=== PATIENT | female | born 1930 | race Caucasian/White ===

== ENCOUNTER 2017-05-18 17:26 | Inpatient (IN) | payer MEDICARE ==
[~2017-05-18 17:26] MED LIST: FLORANEX / LACT1 TAB PO
--- NOTE | 2017-05-18 19:50 | NUR ---
PATIENT ADMITTED FOR[facility] TO ROOM 1128 VIA WHEELCHAIR IN A VAN. SHE IS DELUSIONAL, YELLING OUT TO HER MOM AND THREATENING TO THROW HER SELF IN THE FLOOR. HX: CVA February,, HTN, AND HYPER LIPIDEMIA. FALL PRECAUTIONS INITIATED. CONTINUE PLAN OF CARE.
[2017-05-18] MEDS ORDERED: NORVASC10 MG PO (21:32)
[2017-05-18] MEDS ORDERED: ASPERCREME 5 OZ5 OZ TOPICAL (21:33)
[2017-05-18] MEDS ORDERED: BAYER CHEWABLE81 MG PO (21:34)
[2017-05-18] MEDS ORDERED: PLAVIX75 MG PO (21:35)
[2017-05-18] MEDS ORDERED: LIPITOR20 MG PO (21:35)
[2017-05-18] MEDS ORDERED: COLACE100 MG PO (21:36)
[2017-05-18] MEDS ORDERED: FERROUS SULFAT325 MG PO (21:37)
[2017-05-18] MEDS ORDERED: NEURONTIN 300300 MG PO (21:40)
[2017-05-18] MEDS ORDERED: HYDRALAZINE HCL25 MG PO (21:41)
[2017-05-18] MEDS ORDERED: LINZESS145 MCG PO (21:42)
[2017-05-18] MEDS ORDERED: LISINOPRIL5 MG PO (21:42)
[2017-05-18] MEDS ORDERED: ATIVAN0.5 MG PO ×2 (21:43→21:52)
[2017-05-18] MEDS ORDERED: MIRALAX17 GM PO (21:44)
[2017-05-18] MEDS ORDERED: NYSTATIN ORAL SU5 ML PO (21:45)
[2017-05-18] MEDS ORDERED: OMEPRAZOLE20 M1 PO (21:46)
[2017-05-18] MEDS ORDERED: TRAZODONE HCL50 MG PO (21:47)
[2017-05-18] MEDS ORDERED: ACETAMINOPHEN325 MG PO (21:48)
[2017-05-18] MEDS ORDERED: BISACODYL5 MG PO (21:51)
[2017-05-18] MEDS ORDERED: MYLANTA II SUSP30 ML PO (21:53)
[2017-05-18] MEDS ORDERED: NAPROSYN500 MG PO (21:54)
[2017-05-18] MEDS ORDERED: ULTRAM50 MG PO (21:55)
[2017-05-18] MEDS ORDERED: ZOFRAN4 MG PO (21:58)
[2017-05-18] MEDS ORDERED: ARNICA (22:00)
--- NOTE | 2017-05-18 23:29 | NUR ---
RECEIVED IN DAYROOM. SITTING IN ROLLING RECLINER WITH EYES CLOSED. RESPONDS TO VOICE. CALM AND COOPERATIVE [facility] AND ASSESSMENTS. NO DELUSIONAL STATEMENTS MADE OF THIS TIME. ASSISTED TRANSFER TO BED. TOTAL LIFT. REDIRECT AND REORIENT NEEDED. RESTING IN BED WITH EYES CLOSED AT THIS TIME. AUTOMATED MANUFACTURING INSTRUCTOR PULLED PM ONE TIME ORDER MEDICATIONS TO BE GIVEN AT THIS TIME. CONTINUE PLAN OF CARE.
[2017-05-19 04:48] VITALS: BP 92/41; BMI 19.6
[2017-05-19 07:44] LABS: BASOPHILS 0.3 % (0-2); EOSINOPHILS 1.9 % (0-7); HEMATOCRIT 33.1 % (36.0-48.0); HEMOGLOBIN 10.9 g/dL (12-16); IMMATURE GRANULOCYTES 0.1 % (0-5); LYMPHOCYTES 22.2 % (15-50); MCH 29.3 pg (26.0-34.0); MCHC 32.9 g/dL (31.0-37.0); MEAN PLATELET VOLUME 10.4 fL (7.4-10.4); MONOCYTES 7.4 % (2-11); NEUTROPHILS 68.1 % (40-80); PLATELET COUNT 412 10x3/uL (130-400); RBC 3.72 10x6/uL (4.00-5.40); RDW 13.4 % (11.5-14.5)
[2017-05-19 07:48] LABS: HEMOGLOBIN A1C 5.7 % (4.8-6.0)
[2017-05-19 08:26] LABS: ALBUMIN 3.4 g/dL (3.4-5.0); ANION GAP 18.9 mmol/L (8-16); BILIRUBIN - TOTAL 0.41 mg/dL (0.2-1.3); CALCIUM 9.9 mg/dL (8.5-10.1); CARBON DIOXIDE 22.2 mmol/L (21.0-32.0); CHOL - HDL RATIO 3.4 ratio (2.3-4.1); CREATININE - SERUM 1.7 mg/dL (0.6-1.3); LDL-HDL RATIO 1.6 ratio (1.5-3.5); POTASSIUM - SERUM 4.1 mmol/L (3.5-5.1); THYROID STIMULATING HORMONE 1.23 uIU/mL (0.36-3.74)
[2017-05-19 09:21] VITALS: BP 161/66
[2017-05-19 10:25] VITALS: BMI 19.4
--- NOTE | 2017-05-19 11:47 | NUR ---
pt continues to be restless and yelling out. pt yelling out for mama and making baby like sounds. pt yelling for water and when staff gives it to her she pours it onto the floor. redirected pt to appropriate behavior. no medications at this time. dr. aguilar notified. no aggression noted. pt is a total lift and 3 staff members required to lift pt from bed to her rolling chair. fall precautions maintained. pt is 1:1 for safety. will continue to monitor and continue with plan of care.
[2017-05-19 20:00] VITALS: BP 154/89
--- NOTE | 2017-05-19 20:51 | NUR ---
RECEIVED IN DAYROOM SITTING IN RECLINING CHAIR WITH PEERS BY HER SIDE. CONFUSED. CALM AND COOPERATIVE WITH CARE AND ASSESSMENTS. REDIRECT AND REORIENT NEEDED. IN BED YELLING OUT MOMMA AT THIS TIME. CONTINUE PLAN OF CARE
[2017-05-20 08:19] LABS: RAPID PLASMA REAGIN Non Reactive (Non Reactive)
[2017-05-20 09:16] LABS: FOLATE (FOLIC ACID) - SERUM 17.1 ng/mL (>3.0); VITAMIN D 25 HYDROXY 28.6 ng/mL (30.0-100.0)
--- NOTE | 2017-05-20 14:46 | NUR ---
PT CONTINUES TO BE RESTLESS WHEN AWAKE. PT DID NOT SLEEP WELL ON PREVIOUS NIGHT, SO SHE HAS NAPPED ON AND OFF ALL DAY. PT CONTINUES TO YELL OUT FOR "MAMA". PT DID COOPERATE WITH ASSESSMENT. MEDICATIONS GIVEN ORDERED. FALL PRECAUTIONS MAINTAINED. WILL CONTINUE TO MONITOR AND CONTINUE WITH PLAN OF CARE.
[2017-05-20 20:00] VITALS: BP 146/58
--- NOTE | 2017-05-21 02:39 | NUR ---
B) Patient alert and oriented to self, very confused and wanting to get out of her chair, I) Administered scheduled medications, monitored for falls and safety, redirected that she had recently fallen and was unsteady when out of her chair, R) Medication compliant, difficult to redirect. P) Continue plan of care.
--- NOTE | 2017-05-21 07:20 | NUR ---
OBTAINED STOOL SAMPLE FOR CDT, PATIENT IS HAVING MULTIPLE BM'S PER DAY EVERY DAY. ATTEMPTED TO OBTAIN AN IN AND OUT CATH FOR A URINE SAMPLE, BUT PATIENT HAD NO URINE AT THIS TIME. WILL TRY AGAIN LATER.
--- NOTE | 2017-05-21 07:29 | NUR ---
B) PATIENT IS MORE LUCID THIS AM, SHE IS TALKING ABOUT HOW SHE HAS HAD TWO STROKES AND SINCE SHE HAS HAD THEM IT HAS MADE IT HARD FOR HER TO MOVE. SHE ALLOWS STAFF TO CLEAN HER UP AND ASSIST HER, SHE HAS NOT YELLED OUT THIS AM, COLOR CORRECTOR REPORTS SHE DID NOT SLEEP AT ALL LAST NIGHT AND HAD MULTIPLE BM'S. NO DELUSIONS SEEN THIS AM, WILL MONITOR. I) PROVIDE PRESCRIBED MEDS. R) PATIENT IS COMPLIANT WITH MEDS. P) CONTINUE POC.
--- NOTE | 2017-05-21 10:23 | NUR ---
ORIENTED TO PERSON ONLY. PT DID NOT SLEEP ON PREVIOUS SHIFT AND IS VERY TIRED TODAY. PT HAS HAD MULTIPLE EPISODES OF DIARRHEA AND SAMPLE SENT OFF FOR TESTING OF CDIFF. AWAITING RESULTS. NO AGGRESSION NOTED. MEDICATIONS GIVEN ORDERED. PT IS NOT EATING WELL BUT SWALLOW STUDY SHOWED NO ISSUES. DOCTOR NOTIFIED OF RESULTS AND OF DIARRHEA EPISODES. FALL PRECAUTIONS MAINTAINED. WILL CONTINUE TO MONITOR AND CONTINUE WITH PLAN OF CARE.
[2017-05-21 10:41] VITALS: BP 126/66
--- NOTE | 2017-05-21 13:54 | NUR ---
RD follow up Chart reviewed, poor intake. meds reviewed. continue diet and encourage intake, and supplement
[2017-05-21 20:02] VITALS: BP 108/49
--- NOTE | 2017-05-22 03:43 | NUR ---
B) Patient is alert and oriented to self, very confused, calm and cooperative with care and assessment, I) Administered scheduled medications, monitored for safety, R) Medication compliant, early moring calling out in a childlike voice P) Continue plan of care.
--- NOTE | 2017-05-22 07:49 | NUR ---
OBTAINED URINE BY IN AND OUT CATH, WILL TAKE TO LAB.
[2017-05-22 08:31] VITALS: BP 132/57
[2017-05-22 08:37] LABS: APPEARANCE HAZY (CLEAR); BILIRUBIN NEGATIVE (NEGATIVE); COLOR YELLOW (YELLOW); GLUCOSE NEGATIVE (NEGATIVE); KETONE NEGATIVE (NEGATIVE); NITRITE NEGATIVE (NEGATIVE); PROTEIN NEGATIVE (NEGATIVE); UROBILINOGEN NORMAL (NORMAL)
--- NOTE | 2017-05-22 10:15 | NUR ---
B) PATIENT SAYS "I WANT TO GO TO BED" HE HAS BEEN SAYING THIS SINCE HE GOT OUT OF THE BED. PATIENT CAN STAND WITH STAFF ASSIST. HE IS ORIENTED TO SELF, HE DOES NOT KNOW PLACE, TIME, OR SITUATION. I) PROVIDE PRESCRIBED MEDS. R) PATIENT IS COMPLIANT WITH MEDS. P) CONTINUE POC.
--- NOTE | 2017-05-22 13:54 | NUR ---
PT IS VERY LETHARGIC TODAY. SHE DOES AWAKEN WITH STIMULI BUT HAS MINIMAL COMMUNICATION WITH STAFF. PT C\O TIREDNESS. STAFF HAVE MADE SEVERAL ATTEMPTS TO GET PT TO EAT WITH NO SUCCESS. MEGACE ORDERED PER DR. FERRER. NO AGGRESSION NOTED. FALL PRECAUTIONS MAINTAINED. WILL CONTINUE TO MONITOR AND CONTINUE WITH PLAN OF CARE.
--- NOTE | 2017-05-22 17:44 | NUR ---
PATIENTS NEPHEW CALLED TO CHECK ON HER AND HE DID SAY SHE IS ECCENTRIC. HE DOES KNOW HER WELL, HE HAS BEEN HER CAREGIVER. HE IS USE TO SEEING HER EVERY DAY. HE SAYS SHE WILL SAY SHE IS SICK ALL THE TIME TO GET OUT OF DOING THINGS AND SHE LOVES TO SLEEP.
[2017-05-22 18:55] LABS: BASOPHILS 0.3 % (0-2); EOSINOPHILS 0.5 % (0-7); HEMATOCRIT 35.1 % (36.0-48.0); HEMOGLOBIN 11.9 g/dL (12-16); IMMATURE GRANULOCYTES 0.2 % (0-5); LYMPHOCYTES 21.7 % (15-50); MCH 29.4 pg (26.0-34.0); MCHC 33.9 g/dL (31.0-37.0); MCV 86.7 fL (80.0-100.0); MEAN PLATELET VOLUME 10.5 fL (7.4-10.4); MONOCYTES 6.5 % (2-11); NEUTROPHILS 70.8 % (40-80); PLATELET COUNT 409 10x3/uL (130-400); RBC 4.05 10x6/uL (4.00-5.40); RDW 13.3 % (11.5-14.5)
[2017-05-22 19:05] LABS: ANION GAP 16.4 mmol/L (8-16); CALCIUM 9.9 mg/dL (8.5-10.1); CARBON DIOXIDE 23.1 mmol/L (21.0-32.0); POTASSIUM - SERUM 3.5 mmol/L (3.5-5.1)
[2017-05-22 19:30] VITALS: BP 118/62
--- NOTE | 2017-05-23 04:16 | NUR ---
B) Patient is alert and oriented to self, naps most of the time, arrouses to name, I) Administered scheduled medications, monitored for safety, R) Medications compliant, P) Continue plan of care.
[2017-05-23 08:00] VITALS: BP 114/57
--- NOTE | 2017-05-23 18:42 | NUR ---
ORIENTED TO SELF ONLY.MEDS TAKEN CRUSHED AND PUT IN CHOCOLATE PUDDING.NO YELLING OUT OBSERVED.REQUIRES ASSIST WITH ALL ADL.LEFT ARM CONTRACTED.WILL CONTINUE WITH PLAN OF CARE,MONITOR FOR CHANGES AND SAFETY.
[2017-05-23 19:30] VITALS: BP 148/52
--- NOTE | 2017-05-24 02:33 | NUR ---
B) Patient is alert and oriented to self, yelling out at times, very confused, total assist I) Administered scheduled medications, monitored for safety and falls, redirected as needed. R) Medications compliant, restless sleep P) Continue plan of care.
[2017-05-24 07:47] VITALS: BP 127/62
[2017-05-24 13:23] VITALS: BMI 19.3
--- NOTE | 2017-05-24 13:26 | NUR ---
PT CONTINUES TO REFUSE TO EAT EVEN WITH STAFF ATTEMPTING MULTIPLE TIMES TO EDUCATE ON IMPORTANCE OF EATING. STAFF HAS ALSO ATTEMPTING TO FEED THE PT. SWALLOW STUDY SHOWED NO ISSUES. MEDICATIONS GIVEN IN ICE CREAM BECAUSE IT IS EASIER FOR THE PT TO TAKE THEM. PT WILL YELL OUT "MAMA" WHEN SHE WANTS ATTENTION FROM STAFF. NO AGGRESSION NOTED. FALL PRECUATION MAINTAINED. WILL CONTINUE TO MONITOR AND CONTINUE WITH PLAN OF CARE.
[2017-05-24 19:30] VITALS: BP 119/62
--- NOTE | 2017-05-24 20:59 | NUR ---
RECEIVED IN DAYROOM. LAYING IN RECLINING CHAIR. YELLING OUT MAMMA AT TIMES. CALM AND COOPERATIVE WITH CARE AND ASSESSMENTS. REDIRECT AND REORIENT NEEDED. CONTINUES TO SIT IN RECLINER AT THIS TIME. CONTINUE PLAN OF CARE
[2017-05-25 05:53] LABS: BASOPHILS 0.3 % (0-2); EOSINOPHILS 1.5 % (0-7); HEMATOCRIT 34.4 % (36.0-48.0); HEMOGLOBIN 11.8 g/dL (12-16); IMMATURE GRANULOCYTES 0.3 % (0-5); LYMPHOCYTES 17.3 % (15-50); MCH 29.6 pg (26.0-34.0); MCHC 34.3 g/dL (31.0-37.0); MCV 86.4 fL (80.0-100.0); MEAN PLATELET VOLUME 11.1 fL (7.4-10.4); NEUTROPHILS 73.6 % (40-80); PLATELET COUNT 365 10x3/uL (130-400); RBC 3.98 10x6/uL (4.00-5.40); RDW 13.3 % (11.5-14.5); WBC 14.5 10x3/uL (4.8-10.8)
[2017-05-25 06:38] LABS: ANION GAP 18.7 mmol/L (8-16); CALCIUM 9.8 mg/dL (8.5-10.1); CARBON DIOXIDE 20.6 mmol/L (21.0-32.0); CREATININE - SERUM 1.8 mg/dL (0.6-1.3); POTASSIUM - SERUM 3.3 mmol/L (3.5-5.1)
[2017-05-25 08:49] VITALS: BP 114/61
--- NOTE | 2017-05-25 12:34 | NUR ---
PT HAS BEEN SLEEPING ON AND OFF TODAY. PT IS A TOTAL LIFT AND REQUIRES 3 STAFF MEMBERS TO CARE FOR HER. NO SIGNS OF AGGRESSION NOTED. PT CONTINUES TO NOT EAT EVEN WITH MULTIPLE ATTEMPTS BY STAFF. MEDICATIONS GIVEN ORDERED. FALL PRECAUTIONS MAINTAINED. WILL CONTINUE TO MONITOR AND CONTINUE WITH PLAN OF CARE.
--- NOTE | 2017-05-25 19:16 | NUR ---
OT NOTE: PT COMPLETED AAROM WITH RUE FOR INCREASED I WITH ADLS. PT COMPLETED GENTLE PROM TO LUE TOLERATED BY PT TO DECREASE RISK OF CONTRACTURE AND SKIN BREAKDOWN. THANK YOU, CHRISTIAN ESTEBAN/Amairani
[2017-05-25 19:53] VITALS: BP 133/57
--- NOTE | 2017-05-25 21:34 | NUR ---
RECEIVED IN DAYROOM. SITTING IN RECLINING CHAIR. NOT YELLING. CALM AND COOPERATIVE WITH CARE AND ASSESSMENTS. REDIRECT AND REORIENT NEEDED. LAYING IN BED EYES CLOSED AT THIS TIME. YELLING OUT MOMMA AT TIMES. CONTINUE PLAN OF CARE
[2017-05-26 07:00] VITALS: BP 123/54
--- NOTE | 2017-05-26 10:59 | NUR ---
B) PATIENT IS SITTING IN HER BED, SHE DID EAT A SMALL AMOUNT OF APPLESAUCE AND A SMALL AMOUNT OF OATMEAL, ASSISTED PATIENT UP IN BED, REPOSITIONED, OFFERING FLUIDS WATER EVERY TWO HOURS AND IT IS IN FRONT OF HER ON THE BEDSIDE TABLE. PATIENT IS SLEEPY TODAY. SHE DID YELL OUT A COUPLE OF TIMES FFOR "MAMA", BUT THOMAS Harrell HAS DONE ATOM EXERCISES WITH HER AND SAY AND TALKED WITH HER AND PATIENT CALMED DOWN. I) PROVIDE PRESCRIBED MEDS. R) PATIENT IS COMPLIANT WITH MEDS TODAY AND SHE DID PARTICIPATE IN THE EXCHANGE THOMAS REDDY PROVIDED. P) CONTINUE POC.
--- NOTE | 2017-05-26 13:38 | PN ---
PATIENT:RUTH HORTON MEDICAL RECORD: [id number] LOCATION:[facility] ADMISSION DATE: 05/18/17 PROGRESS NOTE DATE OF SERVICE: 05/21/2017 SUBJECTIVE: The patient's case was discussed with staff. She has no new complaint. OBJECTIVE: The patient is in good behavioral control, but apparently did not sleep at all last night. ASSESSMENT: No change in diagnoses. PLAN: The patient will be given trazodone at a dose of 50 mg at bedtime to assist with sleep consolidation. Her long-term prognosis is guarded. TRANSINT:[id number] Voice Confirmation ID: [id number] DOCUMENT ID: [id number] TAY FERRER MD at 1338 CC: [id number] DICTATION DATE: 05/21/17 1255 INSPECTOR FINAL ASSEMBLY CONVEYOR LINE: 05/21/17 1311 ADM IN [place] [id number] [place] [address]
--- NOTE | 2017-05-26 13:38 | PN ---
PATIENT:RUTH HORTON MEDICAL RECORD: [id number] LOCATION:[facility] ADMISSION DATE: 05/18/17 PROGRESS NOTE DATE OF SERVICE: 05/20/2017 SUBJECTIVE: The patient's case was discussed with staff. She has no new complaint. OBJECTIVE: The patient is in good behavioral control with limited insight about her condition. She tolerates her medicines well. She continues to have this delusion that her child is in danger and calling for her. I am going to start her on a low dose of an antipsychotic for that. Her long-term prognosis is guarded. TRANSINT:[id number] Voice Confirmation ID: [id number] DOCUMENT ID: [id number] TAY FERRER MD at 1338 CC: [id number] DICTATION DATE: 05/20/17 1256 TIE MAKER: 05/20/17 1426 ADM IN [place] [id number] [place] [id number]
--- NOTE | 2017-05-26 13:38 | PN ---
PATIENT:RUTH HORTON MEDICAL RECORD: [id number] LOCATION:[facility] ADMISSION DATE: 05/18/17 PROGRESS NOTE DATE OF SERVICE: 05/25/2017 SUBJECTIVE: The patient's case was discussed with staff. She has no new complaint. OBJECTIVE: The patient is significantly better. She is much calmer and not yelling and not showing evidence of delusions today. Unfortunately, she is still not eating. She is taking Megace and she has been encouraged to eat. I did not speak with the family about this, but I have it from one of the nurses who did speak with family that sometimes when she is angry or mad at others, she would not eat. I find this a little bit hard to accept given that she is so demented, I do not know that she has the ability to consciously behave in this way even though it is maladaptive, I still cannot see her having the cognitive processes to do this, but I will accept it. She only weighs 109 pounds and if she continues to not eat, then this is indeed a profoundly serious probably life threatening situation. TRANSINT:[id number] Voice Confirmation ID: [id number] DOCUMENT ID: [id number] TAY FERRER MD at 1338 CC: [id number] DICTATION DATE: 05/25/17 1249 SPRING TIER: 05/25/17 1308 ADM IN [facility] [address] [place] [id number]
--- NOTE | 2017-05-26 13:38 | PN ---
PATIENT:RUTH HORTON MEDICAL RECORD: [id number] LOCATION:[facility] ADMISSION DATE: 05/18/17 PROGRESS NOTE DATE OF SERVICE: 05/22/2017 SUBJECTIVE: The patient's case was discussed with staff. She has no new complaint. OBJECTIVE: The patient is very disorganized with poor insight about her condition. She has severe impairment of her cognitive functions. ASSESSMENT: No change in diagnoses. PLAN: Current medicines have been reviewed and will be maintained. Her long-term prognosis is guarded. I am going to start her on Megace for its appetite stimulating properties. TRANSINT:[id number] Voice Confirmation ID: [id number] DOCUMENT ID: [id number] TAY FERRER MD at 1338 CC: [id number] DICTATION DATE: 05/22/17 1252 ENGINEERING AND DEVELOPMENT DIRECTOR: 05/22/17 1424 ADM IN [facility] [address] [place] [address]
--- NOTE | 2017-05-26 13:38 | PSY ---
PATIENT NAME:RUTH HORTON MEDICAL RECORD: [id number] : 30 LOCATION:[facility] ADMISSION DATE: 05/18/17 ACCOUNT: [id number] PSYCHIATRIC EVALUATION DATE OF EVALUATION: 05/19/17 IDENTIFYING DATA: The patient is 86 years old and she is admitted to the hospital on a voluntary basis. CHIEF COMPLAINT: Delusions. HISTORY OF PRESENT ILLNESS: The patient lives in a assisted in [place]. Apparently, she has become increasingly disorganized and disruptive. She has been throwing things on the floor. They have been unable to redirect her. She is calling out for her mother and has some sort of a delusion that her mother is present. The patient is severely impaired cognitively and only oriented to person. She cannot answer questions about her behavior at the assisted and she cannot even explain why she is doing what she is doing here. She has a very high pitch cry and she is crying for her mother. She is clearly displaying a high degree of distress and confusion, but is unable to be reasoned with or explain what seems to be disturbing her in any meaningful way. PAST MEDICAL HISTORY: Most significant for a stroke. 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 She does have a history of hypercholesterolemia and hypertension. She has fallen a several times recently. She has been evaluated medically and neurologically for this and there seems to be no obvious medical or neurologic issues that are new. PAST PSYCHIATRIC HISTORY: Of course is most significant for the stroke with the associated cognitive decline and agitation and confusion. FAMILY HISTORY: Unknown. ALLERGIES: PENICILLIN. CURRENT MEDICATIONS: Include Norvasc, aspirin, Lipitor, Plavix, Colace, iron, Neurontin, Apresoline, Ativan, nystatin, trazodone, Tylenol, Naprosyn, Ultram. SOCIAL HISTORY: The patient lives in a local assisted. She is and has 1 adult daughter with whom she has little or no contact. She denies a history of drug or alcohol abuse. MENTAL STATUS EXAMINATION: The patient is awake, alert and oriented to person and place. Her mood is anxious. Her affect is constricted. Thought processes are circumstantial. Memory, concentration and abstract abilities are moderately impaired and she denies any intent to harm herself or others as well as overt psychotic symptoms. ASSETS: Supportive family members. LIABILITIES: Limited insight. DIAGNOSTIC IMPRESSION: AXIS I: Vascular dementia. AXIS II: None. AXIS III: Hypertension, hyperlipidemia, status post stroke. AXIS IV: Moderate stressors. AXIS V: Global assessment of functioning is 35. PLAN: At this time, the patient is admitted to the hospital for a comprehensive medical, psychological, and social evaluation. She will be treated with both mood stabilizing and memory enhancing medications. Her long-term prognosis is guarded. TRANSINT:[id number] Voice Confirmation ID: [id number] DOCUMENT ID: [id number] TAY FERRER MD at 1338 CC: [id number] DICTATION DATE: 05/19/17 1428 BUSINESS APPLICATIONS ANALYST: 05/19/17 1452 ADM IN [place] [id number] [place] [address]
[2017-05-26 20:01] VITALS: BP 120/63
--- NOTE | 2017-05-26 21:50 | NUR ---
RECEIVED IN DAYROOM. LAYING IN RECLINER. NOT SOCIALIZING WITH PEERS OR STAFF. CALM AND COOPERATIVE WITH CARE AND ASSESSMENT. NO YELLING OUT. NO DELUSIONAL STATEMENTS MADE. REDIRECT AND REORIENT NEEDED. RESTING IN BED WITH EYES CLOSED AT THIS TIME. CONTINUE PLAN OF CARE.
[2017-05-27 08:00] VITALS: BP 134/59
--- NOTE | 2017-05-27 15:02 | NUR ---
RD f/u note Pt continues to not eat on Regular finger foods with thin liquids. Med reviewed to included but not limited to megace, nystatin, floranex, ferrous sulfate. BM 05/22. Robb 13 with noted bruises and reddened area to anterior of elbow. wt 05/24-109. Pt on appetite stimulant though po intake remains poor pt underweight. REC: Disucss with family/doctor/other staff if alternutritional support via peg is desired. Plan: continue current diet, offer supplements, current plan of care and RD to follow
--- NOTE | 2017-05-27 16:14 | PN ---
PATIENT:RUTH HORTON MEDICAL RECORD: [id number] LOCATION:[facility] ADMISSION DATE: 05/18/17 PROGRESS NOTE DATE OF SERVICE: 05/26/2017 SUBJECTIVE: The patient's case was discussed with staff. She has no new complaint. OBJECTIVE: The patient is not eating well. She is oriented to person only. Her mood is flat. ASSESSMENT: No change in diagnoses. PLAN: Brief supportive and educational interventions were made. The patient has very limited insight about her situation. She is not aggressive or delusional today. TRANSINT:[id number] Voice Confirmation ID: [id number] DOCUMENT ID: [id number] TAY FERRER MD at 1614 CC: [id number] DICTATION DATE: 05/26/17 1351 COMBER OPERATOR: 05/26/17 1751 ADM IN [facility] [address] [place] [address]
[2017-05-27 20:51] VITALS: BP 122/57
--- NOTE | 2017-05-27 22:08 | NUR ---
RECEIVED IN BEDROOM. RESTING IN BED WITH EYES CLOSED. YELLING OUT MAMA. CALM AND COOPERATIVE WITH CARE AND ASSESSMENT. TOTAL ASSIST. REDIRECT AND REORIENT NEEDED. CONTINUES TO REST IN BED WTIH EYES CLOSED WHILE YELLING OUT MAMA. CONTINUE PLAN OF CARE.
--- NOTE | 2017-05-28 00:17 | NUR ---
Patient restless and agitated, yelling out "Help me, Help me!" looking for her mother, anxious, won't stop yelling. Given Ativan 0.5mg and Haldol 2mg po PRNs for anxiety and agitation. Will monitor for effectiveness.
--- NOTE | 2017-05-28 01:15 | NUR ---
Patient is sleeping, eyes closed, respirations easy and regular. PRNs deemed effective.
--- NOTE | 2017-05-28 04:20 | NUR ---
Patient continues sleeping at this time. Respirations unlabored.
--- NOTE | 2017-05-28 06:15 | NUR ---
Received telephone call from , asked to check patient's tongue. Patient's tongue has a greenish medina coating on it. Informed , WBC elevated and states she has ordered a recheck lab draw this morning, does not know what is causing her WBC to be elevated, aware that patient often refuses her medications. is asking the re-assess patient and suggest treatment for tongue considering patient's history of noncompliance. Will pass this on to the Day Shift Charge Nurse.
[2017-05-28 06:31] LABS: BASOPHILS 0.3 % (0-2); HEMATOCRIT 32.8 % (36.0-48.0); HEMOGLOBIN 10.9 g/dL (12-16); IMMATURE GRANULOCYTES 0.3 % (0-5); LYMPHOCYTES 18.3 % (15-50); MCH 29.2 pg (26.0-34.0); MCHC 33.2 g/dL (31.0-37.0); MCV 87.9 fL (80.0-100.0); MEAN PLATELET VOLUME 11.1 fL (7.4-10.4); MONOCYTES 7.1 % (2-11); PLATELET COUNT 386 10x3/uL (130-400); RBC 3.73 10x6/uL (4.00-5.40); RDW 13.4 % (11.5-14.5); WBC 11.6 10x3/uL (4.8-10.8)
[2017-05-28 08:00] VITALS: BP 117/67
--- NOTE | 2017-05-28 10:00 | NUR ---
B) PATIENT IS AWAKE AND ALERT AND SHE IS ABLE TO MAKE NEEDS KNOWN, SHE IS NOT CALLING OUT TODAY AND SHE IS MORE AWAKE, ORIENTED X1. PATIENT STAYS IN A ANA CHAIR AND SHE NEEDS STAFF ASSIST. I) PROVIDE PRESCRIBED MEDS. R) PATIENT IS COMPLIANT WITH MEDS. P) CONTINUE POC.
--- NOTE | 2017-05-28 13:28 | PN ---
PATIENT:RUTH HORTON MEDICAL RECORD: [id number] LOCATION:[facility] ADMISSION DATE: 05/18/17 PROGRESS NOTE DATE OF SERVICE: 05/27/2017 SUBJECTIVE: The patient's case was discussed with staff. She has no new complaint. OBJECTIVE: The patient is in good behavioral control with limited insight about her condition. She has severe cognitive impairment. Unfortunately, she still is not eating an acceptable amount. Her came to visit last night and he apparently is responsible for getting her to eat 50% of dinner, but yesterday she had 0% of lunch and only ate 10% of breakfast. This is despite encouragement from our staff, who spend a great deal of time working with patients who do not eat and are actually pretty good at getting them to eat. I think her prognosis is exceedingly poor, obviously, if she does not eat. She only weighs 109 pounds and stands 5 feet 3 inches tall. The dementia is advanced. The not eating, which is likely associated with an advanced dementia is of significant concern and her survival in the short run is endangered if I, the nursing staff or her family cannot get her to eat. With the exception of not eating, I think she is very close to being ready for discharge. TRANSINT:[id number] Voice Confirmation ID: [id number] DOCUMENT ID: [id number] TAY FERRER MD at 1328 CC: [id number] DICTATION DATE: 05/27/17 1653 NUTRITIONISTS: 05/27/17 2110 ADM IN [place] [id number] [place] [address]
[2017-05-28 19:58] VITALS: BP 94/46
--- NOTE | 2017-05-29 01:46 | NUR ---
B) Patient is alert and oriented to self, calm and cooperative, I) Administered scheduled medications crushed, redirected as needed, R) Medication compliant, in bed now talking in sing song baby voice, P) Continue plan of care.
[2017-05-29 08:36] VITALS: BP 104/53
--- NOTE | 2017-05-29 11:00 | NUR ---
B) UPON ENTERING THE UNIT THERE IS A BABY LIKE SOUND, IT IS THIS PATIENT MAKING BABY SOUNDS. SHE HAS HER EYES CLOSED WHEN ENTERING THE ROOM, UNSURE IF SHE IS SLEEPING. PATIENT IS ASSISTED TO THE GERICHAIR BY TWO STAFF, SHE IS NONSENSICAL. SHE IS NOT MAKING MUCH SENSE TODAY. I) PROVIDE PRESCRIBED MEDS. R) PATIENT WAS TOO SLEEPY AT AM MED PASS, SO SHE DID NOT RECEIVE ANY. P) CONTINUE POC.
[2017-05-29 19:30] VITALS: BP 95/44
--- NOTE | 2017-05-30 04:19 | NUR ---
B) patient is alert and oriented to self, good appitite eating snacks this evening from [facility] spoon feeding her I) Administered scheduled medications crushed in pudding, monitored for safety, R) Medication compliant, talks in baby voice to herself at night P) Continue plan of care.
[2017-05-30 09:41] VITALS: BP 99/73
--- NOTE | 2017-05-30 13:00 | NUR ---
B) ALERT AND ORIENTED TO SELF ONLY. MAKES SOUNDS LIKE A BABY. AND IS NON-VERBAL, MAKE NO SENSE IN HER CONVERSATION. ASSISTED TO CHAIR VIA HOLLIER LIFT AND TWO STAFF MEMBERS. I) ADMINISTERED PRESCRIBED MEDICATIONS. ASSESSMENT COMPLETED. R) COMPLIANT WITH TAKING MEDICATIONS. RESTING IN RECLINER. P) CONTINUE PLAN OF CARE AND MONITOR FOR SAFETY AND CHANGES.
[2017-05-30 20:25] VITALS: BP 98/56
--- NOTE | 2017-05-31 01:25 | NUR ---
B) Patient is alert and oriented to self, talking in baby voice, unaware of surrodings. I) Administered scheduled medications, monitored for safety and falls, R) Medication compliant, cooperative with care, P) Continue plan of care.
[2017-05-31 07:00] VITALS: BP 100/55
--- NOTE | 2017-05-31 15:26 | NUR ---
ORIENTED TO SELF ONLY.REQUIRES MUCH ASSIST WITH ADL.HAS BEEN VERY QUIET TODAY,SLEEPING MOST OF THE DAY.MAKES BABY SOUNDS AT NIGHT BUT NON HEARD TODAY.MEDS CRUSHED AND GIVEN IN APPLESAUCE.IS COMPLIANT WITH MEDS AND STAFF. WILL CONTINUE WITH PLAN OF CARE,MONITOR FOR CHANGES AND SAFETY.
[2017-05-31 19:35] VITALS: BP 90/52
--- NOTE | 2017-05-31 20:07 | PN ---
PATIENT:RUTH HORTNO MEDICAL RECORD: [id number] LOCATION:[facility] ADMISSION DATE: 05/18/17 PROGRESS NOTE DATE OF SERVICE: 05/29/2017 SUBJECTIVE: No new complaint. OBJECTIVE: The patient is eating somewhat better. Staff reports no new problems, anticipate discharge next week. On exam, mood is more or less euthymic. Affect very constricted. Speech minimal. Content of thought is negative for overt psychosis. Sensorium shows no change. ASSESSMENT: No change in diagnosis. PLAN: 1. Maintain current medication. 2. Continue supportive therapy. TRANSINT:[id number] Voice Confirmation ID: [id number] DOCUMENT ID: [id number] JONO NICHOLAS III, MD at 2006 CC: [id number] DICTATION DATE: 05/29/17 1157 PERFORMANCE IMPROVEMENT MANAGER: 05/29/17 1324 ADM IN [place] [id number] [place] [address]
--- NOTE | 2017-05-31 23:56 | NUR ---
RECEIVED IN DAYROOM. SITTING IN RECLINING CHAIR WITH PEERS AT SIDE. NO DELUSIONAL STATEMENST MADE THIS PM. NO ATTENTION SEEKING BEHAVIORS. NOT YELLING OUT THIS PM. CALM AND COOPERATIVE WITH CARE AND ASSESSMENT. ENCOURAGE TO EXPRESS NEEDS. RESTING IN BED WITH EYES CLOSED AT THIS TIME. CONTINUE PLAN OF CARE.
[2017-06-01 07:00] VITALS: BP 98/32
--- NOTE | 2017-06-01 11:00 | NUR ---
B) AWAKE AND ALERT, CONFUSED AND UNAWARE OF HER SURROUNDINGS. NO AGGRESSION NOTED THIS AM. I) ADMINISTERED MEDICATIONS. ASSESSMENT COMPLETED. VSS. R) COMPLIANT WITH TAKING MEDICATIONS. REDIRECT AND REORIENT. P) CVONTINUE PLAN OF CARE.
--- NOTE | 2017-06-01 13:43 | PN ---
PATIENT:RUTH HORTON MEDICAL RECORD: [id number] [facility] AD[facility]ION DATE: 05/18/17 PROGRESS NOTE DATE OF SERVICE: 05/28/2017 SUBJECTIVE: The patient's case was discussed with staff. She has no new complaint. OBJECTIVE: The patient is in good behavioral control with limited insight about her condition. She generally tolerates her medicines well. ASSESSMENT: No change in diagnoses. PLAN: Brief supportive and educational interventions were made. Long-Term prognosis is guarded. The patient continues to not eat properly. As documented in previous days, this is serious and significant concern and really is the only obstacle needing to be addressed before she can be transitioned out of the hospital. TRANSINT:[id number] Voice Confirmation ID: [id number] DOCUMENT ID: [id number] TAY FERRER MD at 1343 CC: [id number] DICTATION DATE: 05/28/17 1345 WRAPPER REWINDER: 05/28/17 1423 ADM IN [id number] [place] [address]
[2017-06-01] MEDS ORDERED: MEGACE40 MG PO (13:44)
[2017-06-01] MEDS ORDERED: ARICEPT5 MG PO (13:45)
[2017-06-01] MEDS ORDERED: PERPHENAZINE2 MG PO (13:46)
[2017-06-01] MEDS ORDERED: VITAMIN D5000 UNIT PO (13:47)
[2017-06-01 19:20] VITALS: BP 125/48
--- NOTE | 2017-06-01 22:19 | NUR ---
RCEIVED IN ROOM. RESTING IN BED WITH EYES OPEN. CALM AND COOPERATIVE WITH CARE AND ASSESSMENT. YELLING OUT AT TIMES. ENCOURAGE TO EXPRESS NEEDS. REDIRECT AND REORIENT NEEDED. RESTING IN BED WITH EYES CLOSED. CONTINUE PLAN OF CARE.
--- NOTE | 2017-06-02 09:00 | NUR ---
Rec'd in day room for group therapy, alert, med compliant, quiet, no yelling, no aggression, calm. Meds admin as ordered and group therapy provided. Present for group. Participates when cued. Man meds well with no s/s adverse reaction.
[2017-06-02 09:53] VITALS: BP 115/72
--- NOTE | 2017-06-02 11:35 | NUR ---
John with [facility] here to transport pt. to [facility] in [place]. Pt alert, calm, no aggression noted. Pt assisted to IN van via w/c. Personal belongings returned to patient. Pt assisted into van per [place] staff for transport.
--- NOTE | 2017-06-02 15:22 | PN ---
PATIENT:RUTH HORTON MEDICAL RECORD: [id number] LOCATION:[facility] ADMISSION DATE: 05/18/17 PROGRESS NOTE DATE OF SERVICE: 06/01/2017 SUBJECTIVE: The patient's case was discussed with staff. She has no new complaint. OBJECTIVE: The patient denies intent to harm herself or others. She generally tolerates her medicines well. She is sleeping reasonably well, but still not eating well at all. ASSESSMENT: No change in diagnoses. PLAN: The patient is in good behavioral control and may be transitioned out of the hospital tomorrow. I think her prognosis is guarded. If she does not begin eating better, obviously that is a very bad sign and a bad outcome will occur in just a few weeks. If she will resume eating and hopefully the appetite stimulating medication she is on will help with that, I think she has a fair prognosis. All of this is being said within the context of the fact that she has a progressive dementia and is 86 years old, but I see no reason why she could not go on functioning and to some degree enjoying other people and life if she will simply eat. I do not think this is related to depression. I think it is related to the disease process and hopefully the appetite stimulant will help. TRANSINT:[id number] Voice Confirmation ID: [id number] DOCUMENT ID: [id number] TAY FERRER MD at 1522 CC: [id number] DICTATION DATE: 06/01/17 1353 DAIRY CATTLE FARMER: 06/01/17 1745 DIS IN 06/02/17 [id number] [place] [address]
--- NOTE | 2017-06-03 15:32 | PN ---
PATIENT:RUTH HORTON MEDICAL RECORD: [id number] LOCATION:[facility] ADMISSION DATE: 05/18/17 PROGRESS NOTE DATE OF SERVICE: SUBJECTIVE: The patient's case was discussed with staff. She has no new complaint. OBJECTIVE: The patient denies intent to harm herself or others. She generally tolerates her medicines well. She actually ate considerably better than she has in the past few days, although it is still not an adequate amount. I am encouraged by this. ASSESSMENT: No change in diagnoses. PLAN: The patient will be transitioned back to the shelter today. Her long-term prognosis is guarded. Supportive and educational interventions were made. Followup is to be with her primary care shelter physician. TRANSINT:[id number] Voice Confirmation ID: [id number] DOCUMENT ID: [id number] TAY FERRER MD at 1532 CC: [id number] DICTATION DATE: 06/02/17 1534 SINTER FEEDER: 06/02/17 1627 DIS IN 06/02/17 [id number] [place] [address]
--- NOTE | 2017-06-17 12:15 | DS ---
PATIENT:RUTH HORTON :30 MEDICAL RECORD: [id number] DISCHARGE SUMMARY ADMISSION DATE: 05/18/17 DISCHARGE DATE: 06/02/17 IDENTIFYING DATA: The patient is 86 years old and she was admitted to the hospital on a voluntary basis secondary to delusions. The patient lives in a usp in [place] and she recently has become increasingly disorganized and disruptive. She has been throwing things on the floor and the staff has been unable to redirect her. Although she is 86 years old, she is calling out for her mother and has some sort of delusion that her mother is present. The patient is severely impaired cognitively and only oriented to person. She is displaying a very high degree of distress and confusion, but is not capable of being reasoned with or having the situation explained to her in any meaningful way. HOSPITAL COURSE: The patient was admitted to the hospital and fully evaluated from both a medical, psychological, and social standpoint. She was treated with mood stabilizing and memory enhancing medications. She did show improvement through the course of the hospitalization. She was subsequently transitioned back to the [facility]p. At the time of discharge, she was not acutely dangerous. DISCHARGE DIAGNOSES: AXIS I: Vascular dementia. AXIS II: None. AXIS III: Hypertension, hyperlipidemia, status post stroke. AXIS IV: Moderate stressors. AXIS V: Global assessment of functioning is 40. PLAN: At the time of discharge, the patient was in good behavioral control with very limited insight about her condition. She was tolerating her medications well. She did not pose a direct or acute risk to others. The patient will have followup care provided by her primary care usp physician. TRANSINT:[id number] Voice Confirmation ID: [id number] DOCUMENT ID: [id number] TAY FERRER MD at 1215 CC: [id number] DICTATION DATE: 06/16/17 1507 BOSOM PRESSER: 06/17/17 0117 DIS IN 06/02/17 [id number] [place] [address]
== END 2017-06-02 11:00 | DRG 57 ==
LOC: D.PSYCH 17:26
PROVIDERS: Family Medicine; ADMIT Psychiatry & Neurology Psychiatry
DX: I69.918 Other symptoms and signs involving cognitive functions following unspecified cerebrovascular disease (principal); F01.51 Vascular dementia, unspecified severity, with behavioral disturbance; I69.954 Hemiplegia and hemiparesis following unspecified cerebrovascular disease affecting left non-dominant side; B37.81 Candidal esophagitis; B37.0 Candidal stomatitis; I10 Essential (primary) hypertension; E78.5 Hyperlipidemia, unspecified; R13.10 Dysphagia, unspecified; R26.9 Unspecified abnormalities of gait and mobility; Z91.81 History of falling; M25.561 Pain in right knee; F22 Delusional disorders; K59.00 Constipation, unspecified; R32 Unspecified urinary incontinence; R19.7 Diarrhea, unspecified; E55.9 Vitamin D deficiency, unspecified